=== PATIENT | male | born 1980 | race Caucasian/White ===

== ENCOUNTER 2016-09-27 22:14 | Inpatient (IN) | payer OTHER ==
--- NOTE | ~2016-09-27 | DS ---
Unit #: [id number] #: [id number] Patient: VISH PRECIADO [id number] [address] [address] [id number] I MR#: [id number] NAME: VISH PRECIADO ROOM: 47 Age: 36 Sex: M Admission Date: 09/27/2016 : 1980 Discharge Date: 10/02/2016 Attending Physician: Wade Burkett M.D. Primary Care Physician: No Primary Care Physician DISCHARGE SUMMARY DIAGNOSIS Epididymoorchitis. HOSPITAL COURSE The patient was admitted to the hospital September 27, 2016. Ultrasound showed epididymoorchitis on the left. The patient was started on antibiotics, given pain medication. At the time of discharge he was ambulating, tolerating p.o., responded to antibiotics. His urine culture showed no growth. The patient will be discharged home with followup as needed as an outpatient. PAST MEDICAL HISTORY Negative except the patient uses a wheelchair. SOCIAL HISTORY Positive for smoking. FAMILY HISTORY Family history is noncontributory. MEDICATIONS The patient discharged home on antibiotics, pain medication. Dictated by... Barrett Mcdonald/yair TD: 10/12/2016 12:42 JOB #: [id number] DISCHARGE SUMMARY X Gerald Burns MD X DISCHARGE SUMMARY
--- NOTE | ~2016-09-27 | US115 ---
[facility]. [facility] A Service of [facility] & [facility] RADIOLOGY TEXT RESULTS PATIENT: VISH PRECIADO LOCATION: [place] [address] : [birth year] UNIT #: [id number] AGE: [address]: Wade Burkett MD SEX: M ORDER DR: [id number] [place] [id number] I MR#: [id number] Acc #: [id number] NAME: VISH PRECIADO : 1980 SEX: M STUDY DATE/TIME: 09/27/2016 23:00 UNIT: SEDOF ROOM: [place] STUDY DESCRIPTION: US Scrotum and Contents Attending Physician: Wade Burkett M.D. Ordering Physician: Osvaldo Tripathi M.D. Primary Care Physician: Primary Care Physician No MEDICAL IMAGING REPORT This report is preliminary unless electronic signature is present. EXAM Ultrasound scrotum 1979 at 2300 hours INDICATIONS Left side testicular pain for the last 3 days. No trauma. FINDINGS Felix-scale, color flow, and spectral Doppler waveform analysis was performed of the scrotum and contents. No comparison. The right hemiscrotum is normal. The testicle shows normal perfusion and demonstrates no mass. The right epididymis is normal and there is no hydrocele. On the left side, there is marked hyperemia of the testicle and epididymis compatible with epididymo-orchitis. Additionally, there is a complex left hydrocele. Additionally, there appears to be a left varicocele. IMPRESSION Fairly pronounced left epididymo-orchitis with a complex small left hydrocele. Also noted is a probable left side varicocele. The right hemiscrotum is normal. Dictated by... Azar Dailey Jr., M.D. THIS IS AN ELECTRONICALLY VERIFIED REPORT Azar Dailey Jr., M.D. at 10/01/2016 7:18 AM Juliane TD: 09/28/2016 06:31 JOB #: [id number] [facility] A Service of [facility] RADIOLOGY TEXT RESULTS PATIENT: VISH PRECIADO LOCATION: [id number] : [birth year] UNIT #: [id number] AGE: [address]: Wade Burkett MD SEX: M ORDER DR: MEDICAL IMAGING REPORT
--- NOTE | ~2016-09-27 | HP ---
Unit #: [id number] #: [id number] Patient: VISH PRECIADO [id number] [address] [address] [id number] I MR#: [id number] NAME: VISH PRECIADO ROOM: 471 Age: 36 Sex: M Admission Date: 09/28/2016 : 1980 Attending Physician: Wade Burkett M.D. Primary Care Physician: No Primary Care Physician HISTORY AND PHYSICAL ADMITTING DIAGNOSIS Left epididymitis and orchitis. HISTORY OF PRESENT ILLNESS The patient is a 36-year-old male who presented to an outside ER with a 3-day history of left groin and testicular pain. He had a fever to 101. He denies prior trauma. He has had some mild dysuria. He denies any other issues. PAST MEDICAL HISTORY None. PAST SURGICAL HISTORY Left hip surgery. MEDICATIONS None. ALLERGIES Penicillin. NOTE: He has tolerated Rocephin in the emergency room. PHYSICAL EXAMINATION VITAL SIGNS: Temperature was 101 in the emergency room. It is 99.5 now. Blood pressure is 112/65, pulse 85, respirations 12. GENERAL: This is a well-developed male in no acute distress. HEENT: Normocephalic, atraumatic. LUNGS: The patient is breathing comfortably. ABDOMEN: Soft, nontender, nondistended. EXAM: His left testicle is indurated and tender, but there is nothing that appears to be a drainable abscess. There is no evidence of Crason gangrene. EXTREMITIES: No clubbing, cyanosis or edema. DIAGNOSTIC STUDIES LABS: White blood cell count is 16,000. Urinalysis is nitrite negative, leukocyte esterase positive, no blood. Creatinine is 0.9. ASSESSMENT AND PLAN Left epididymoorchitis. Will continue him on Rocephin, as well as Toradol. We will follow his urine culture. We appreciate the opportunity to participate in his care. Unit #: [id number] #: [id number] Patient: VISH PRECIADO Dictated by Barrett Armenta/db TD: 09/28/2016 09:25 JOB #: [id number] HISTORY AND PHYSICAL X Wade Burkett MD HISTORY AND PHYSICAL
[2016-09-27 22:49] LABS: BASOPHIL# 0.1 X10e3 (0-0.3); BASOPHIL% 0.3 % (0-2.5); EOSINOPHIL% 0.1 % (0.0-7.0); HEMATOCRIT 44.2 % (38.0-50.0); HEMOGLOBIN 14.7 gm/dL (13.0-16.0); LYMPHOCYTE# 1.8 X10e3 (1.0-3.5); LYMPHOCYTE% 11.2 % (17.0-45.0); MEAN CORPUSCULAR HGB CONC 33.3 g/dL (30-36); MEAN PLATELET VOLUME 9.6 FL (6.5-11.5); MONOCYTE# 1.8 X10e3 (0-1.0); NEUTROPHIL# 12.7 X10e3 (1.5-7.1); NEUTROPHIL% 77.4 % (40-75); PLATELET COUNT 127 X10e3 (140-420); RED BLOOD COUNT 4.91 X10e (3.90-5.60); RED CELL DISTRIBUTION WIDTH 13.9 % (11.0-15.5); WHITE BLOOD COUNT 16.4 X10e3 (4.0-10.5)
[2016-09-27 22:50] LABS: INFLUENZA A NEG (NEG); INFLUENZA B NEG (NEG)
[2016-09-27 22:51] LABS: DIFF IND NO
[2016-09-27 23:00] LABS: URINE SOURCE CLEAN CATCH
[2016-09-27 23:02] LABS: BLOOD UREA NITROGEN 10 mg/dL (9-23); BUN/CREATININE RATIO 11.11; CALCIUM SERUM 8.9 mg/dL (8.4-10.2); CARBON DIOXIDE 30 mmol/L (22-31); CHLORIDE 95 mmol/L (100-111); CREATININE SERUM 0.9 mg/dL (0.6-1.4); GLOM FILT RATE Estimated ABOVE60 mL/min (>60); GLUCOSE FASTING 97 mg/dL (70-110); POTASSIUM 3.7 mmol/L (3.5-5.1); SODIUM 134 mmol/L (135-145)
[2016-09-27 23:04] LABS: URINE APPEARANCE CLEAR; URINE BILIRUBIN NEG (NEG); URINE BLOOD NEG (NEG); URINE COLOR YELLOW; URINE GLUCOSE NEG (NORM); URINE KETONE TRACE (NEG); URINE LEUKOCYTE ESTERASE 1+ (NEG); URINE NITRATE NEG (NEG); URINE PROTEIN TRACE (NEG)
[2016-09-27 23:05] LABS: MICRO INDICATED? YES
[2016-09-27 23:22] LABS: URINE RBC 0-2 /[HPF] (0-2)
[2016-09-27 23:23] LABS: CULTURE INDICATED? YES; URINE BACTERIA NEG (NEG); URINE WBC 50-100 /[HPF] (0-5)
[2016-09-27 23:24] LABS: URINE MUCUS PRESENT; URINE SQUAMOUS EPITHELIAL CELL OCCAS /[HPF]
[2016-09-29 03:08] LABS: BASOPHIL# 0.1 X10e3 (0-0.3); BASOPHIL% 0.7 % (0-2.5); EOSINOPHIL# 0.3 X10e3 (0-0.7); EOSINOPHIL% 1.9 % (0.0-7.0); HEMATOCRIT 39.6 % (38.0-50.0); LYMPHOCYTE# 3.3 X10e3 (1.0-3.5); LYMPHOCYTE% 21.7 % (17.0-45.0); MEAN CELL VOLUME 90.8 FL (83-96); MEAN CORPUSCULAR HEMOGLOBIN 29.7 PG (28-34); MEAN CORPUSCULAR HGB CONC 32.7 g/dL (30-36); MEAN PLATELET VOLUME 10.2 FL (6.5-11.5); MONOCYTE# 1.5 X10e3 (0-1.0); MONOCYTE% 9.6 % (3.0-12.0); NEUTROPHIL# 9.9 X10e3 (1.5-7.1); NEUTROPHIL% 66.1 % (40-75); PLATELET COUNT 122 X10e3 (140-420); RED BLOOD COUNT 4.36 X10e (3.90-5.60); RED CELL DISTRIBUTION WIDTH 13.6 % (11.0-15.5); WHITE BLOOD COUNT 15.1 X10e3 (4.0-10.5)
[2016-09-29 03:09] LABS: DIFF IND YES
[2016-09-29 03:37] LABS: BLOOD UREA NITROGEN 16 mg/dL (9-23); CALCIUM SERUM 8.6 mg/dL (8.4-10.2); CARBON DIOXIDE 33 mmol/L (22-31); CHLORIDE 103 mmol/L (100-111); CREATININE SERUM 0.8 mg/dL (0.6-1.4); GLOM FILT RATE Estimated ABOVE60 mL/min (>60); GLUCOSE FASTING 104 mg/dL (70-110); POTASSIUM 4.2 mmol/L (3.5-5.1); SODIUM 139 mmol/L (135-145)
[2016-09-29 04:15] LABS: DIFFERENTIAL COMMENT PLT.CLUMPING; PLATELET ESTIMATE NORMAL (NORMAL)
[2016-09-30 08:30] LABS: BASOPHIL# 0.1 X10e3 (0-0.3); EOSINOPHIL# 0.3 X10e3 (0-0.7); EOSINOPHIL% 1.8 % (0.0-7.0); HEMATOCRIT 38.2 % (38.0-50.0); HEMOGLOBIN 12.6 gm/dL (13.0-16.0); LYMPHOCYTE# 3.5 X10e3 (1.0-3.5); LYMPHOCYTE% 24.7 % (17.0-45.0); MEAN CELL VOLUME 90.8 FL (83-96); MEAN PLATELET VOLUME 8.7 FL (6.5-11.5); MONOCYTE# 0.8 X10e3 (0-1.0); MONOCYTE% 5.9 % (3.0-12.0); NEUTROPHIL# 9.3 X10e3 (1.5-7.1); NEUTROPHIL% 66.6 % (40-75); PLATELET COUNT 240 X10e3 (140-420); RED BLOOD COUNT 4.21 X10e (3.90-5.60); RED CELL DISTRIBUTION WIDTH 13.7 % (11.0-15.5)
[2016-09-30 08:31] LABS: DIFF IND NO
[2016-10-02] MEDS ORDERED: BACTRIM DS TABL1 TA1 PO (08:37)
[2016-10-02] MEDS ORDERED: NORCO 7.5-3251 EACH PO (08:37)
[2016-10-02 16:33] LABS: CHLAMYDIA TRACH Not Detected (Not Detected); N GONOR Not Detected (Not Detected)
== END 2016-10-02 11:45 | disposition home or self-care (01) | DRG 728 ==
LOC: SED 22:14 → C4C 09-28 00:11
PROVIDERS: Emergency Medicine; Urology
DX: N45.3 Epididymo-orchitis (principal); Z88.0 Allergy status to penicillin
CPT/HCPCS: 36415; 76870; 80048; 81003; 83605; 85025; 87040; 87086; 87491; 87591; 87804; 93976; 96365; 99285; J0456; J0696; J1650; J1885